=== PATIENT | male | born 2000 | race Caucasian/White ===

== ENCOUNTER 2022-04-19 14:31 | Emergency (ER) | payer SELFPAY ==
[~2022-04-19] VITALS: Ht 172.7 cm; Wt 78.2 kg
[2022-04-19 14:50] VITALS: BP 137/68
[2022-04-19] MEDS ORDERED: CYCL-1 PO (15:24)
[2022-04-19] MEDS ORDERED: IBUP-1984 PO (15:24)
[2022-04-19] MEDS ORDERED: ketorolac tromethamine 15mg/ml inj. IM ONE (15:25)
[2022-04-19] MEDS ORDERED: cyclobenzaprine 10mg tablet PO ONE (15:25)
--- NOTE | 2022-04-19 15:51 | NUR ---
po med given im given
== END 2022-04-19 15:53 | disposition home or self-care (01) ==
LOC: ER 14:31
DX: S39.012A Strain of muscle, fascia and tendon of lower back, initial encounter (principal); Z79.899 Other long term (current) drug therapy; V89.2XXA Person injured in unspecified motor-vehicle accident, traffic, initial encounter; Y93.89 Activity, other specified; Y92.89 Other specified places as the place of occurrence of the external cause; Y99.8 Other external cause status
CPT/HCPCS: 96372; 99283; J1885